=== PATIENT | female | born 1990 | race American Indian/Alaskan Native ===

== ENCOUNTER 2019-02-22 12:52 | Inpatient (IN) | payer MEDICAID ==
[2019-02-22] MEDS ORDERED: MINERAL OIL PO PRN (13:21)
[2019-02-22] MEDS ORDERED: BRETHINE IVP PRN (13:21)
[2019-02-22] MEDS ORDERED: BRETHINE SUB-Q PRN (13:21)
[2019-02-22] MEDS ORDERED: XYLOCAINE 2% INFILTRATI ONE (13:21)
--- NOTE | 2019-02-22 13:25 | History and Physical Report ---
History of Present Illness Date of examination: 02/22/19 Date of admission: 02/22/19 12:52 Chief complaint: sent from office for IOL d/t deceleration on NST, IUGR History of present illness: Menstrual History Regularity: regular Duration: 5 LMP: 05/31/2018 LMP reliability: definite LMP character: normal test type: urine test Date: 08/15/2018 BC at conception: none Planned ? no EDC Calculations LMP: 03/07/2019 First Doppler FHT (date): 08/15/2018 EDC Confirmation: 03/07/2019 Gestational Age: 10 6/7 weeks Past History : 1 Term Births: 0 Premature Births: 0 Living Children: 0 Para: 0 Mult. Births: 0 Prev : 0 Prev. attempt? 0 Aborta: 0 Elect. Ab: 0 Spont. Ab: 0 Ectopics: 0 Past Medical History: Abnormal Pap Smear 2016 Past Surgical History: negative Past Medical History Anesthesia Complications: negative Anemia: negative Autoimmune Disorder: negative Bleeding Disorder: negative Blood Transfusions: negative Breast Disease: negative Diabetes: negative Heart Disease: negative Hypertension: negative Hepatitis/Liver Disease: negative Kidney Disease/UTI: negative Neurologic/Epilepsy/Migraines: negative Phlebitis/Varicosities: negative Psychiatric: negative Pulmonary Disease/Asthma: negative Thyroid Disease: negative Hospitalizations: negative Surgery (Non-reverser): negative Abnormal PAP: positive, 2016, normal 09/2017 Family Hx: maternal aunt: DM and HTN no known family hx cancer Social Hx: single no ETOH/drugs/Smoking Infection History Hx of STD: chlamydia 2010 HIV Risk Eval: no Hepatitis B Risk Eval: low risk Personal hx. of genital herpes: no Partner hx. of genital herpes: no Rash, Viral, or Febrile illness since last LMP? no Varicella/Chicken Pox Status: Previous Disease Genetic History Congenital Heart Defect: Mom: no Dad: no Riaz Disease: Mom: no Dad: no Thalassemia Mom: no Dad: no Neural Tube Defect Mom: no Dad: no Down's Syndrome Mom: no Dad: no Torsten-Sachs Mom: no Dad: no Sickle Cell Disease/Trait Mom: no Dad: no Hemophilia Mom: no Dad: no Muscular Dystrophy Mom: no Dad: no Cystic Fibrosis Mom: no Dad: no Ismael Chorea Mom: no Dad: no Mental Retardation Mom: no Dad: no Fragile X Mom: no Dad: no Other Genetic/Chromosomal Disorder Mom: no Dad: no Child w/other defect Mom: no Dad: no Enviromental Exposures Xray Exposure: no Medication, drug, or alcohol use since LMP: no Chemical/Other Exposure: no Exposure to Cat Liter: no Hx of Parvovirus (Fifth Disease): no Occupational Exposure to Children: none Current Allergies (reviewed today): No known allergies Past History Past Medical History: other (see HPI) Past Surgical History: other (see HPI) 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) Family/Genetic History: other (see HPI) Social history: other (see HPI) - Obstetrical History Expected Date of Delivery: 03/07/19 Actual Gestation: 38 Week(s) 1 Day(s) : 1 Para: 0 Medications and Allergies Allergies Allergy/AdvReac Type Severity Reaction Status Date / Time No Known Allergies Allergy Unverified 02/22/19 13:33 Home Medications Medication Instructions Recorded Confirmed Last Taken Type Vit-Fe Fumar-FA [ 1 tab PO QDAY 02/22/19 02/22/19 02/22/19 09:00 History Vitamin] Active Meds: Active Medications Ephedrine Sulfate (Ephedrine Sulfate) 10 mg IV Q2M PRN PRN Reason: Hypotension Oxytocin/Sodium Chloride (Pitocin/Ns 20 Unit/1000ml Drip) 20 units in 1,000 mls @ 125 mls/hr IV DIRECT SARAH Oxytocin/Sodium Chloride (Pitocin/Ns 30 Unit/500ml) 30 units in 500 mls @ 1 mls/hr IV TITR SARAH; Protocol Lactated Ringer's (Lactated Ringers) 1,000 mls @ 125 mls/hr IV DIRECT SARAH Lidocaine (Xylocaine 2%) 20 ml INFILTRATI ONCE ONE Stop: 02/22/19 13:22 Mineral Oil (Mineral Oil) 30 ml PO QHS PRN PRN Reason: Constipation Misoprostol (Cytotec) 25 mcg VAGINAL ONCE ONE Stop: 02/22/19 17:01 Terbutaline Sulfate (Brethine) 0.25 mg SUB-Q ONCE PRN PRN Reason: Hyperstimulation/Hypertonicity Terbutaline Sulfate (Brethine) 0.25 mg IVP ONCE PRN PRN Reason: Hyperstimulation/Hypertonicity Review of Systems All systems: negative - Vital Signs Vital signs: Vital Signs Pulse BP 92 H 130/93 02/22/19 13:14 02/22/19 13:14 Temp Pulse Resp BP Pulse Ox 92 H 130/93 02/22/19 13:14 02/22/19 13:14 - Physical Exam Cardiovascular: Regular rate, Normal S1, Normal S2 Lungs: Positive: Clear to auscultation, Normal air movement Abdomen: Positive: normal appearance, soft, normal bowel sounds. Negative: distention, tenderness Genitourinary (Female): Positive: normal external genitalia, normal perenium Vulva: both: normal Vagina: Positive: normal moisture. Negative: discharge Cervix: Negative: lesion, discharge Uterus: Positive: normal size, normal contour Adnexa: both: normal Anus/Rectum: Positive: normal perianal skin. Negative: rectal mass, hemorrhoids Extremities: Positive: normal Deep Tendon Reflex Grade: Normal +2 - Obstetrical FHR: auscultation normal Uterine Contraction Pattern: Absent Results Result Diagrams: 02/22/19 Unknown 02/22/19 17:40 All other labs normal. Assessment and Plan 28 y.o. IUP at 38w 1d sent for IOL d/t late deceration noted on NST in office, IUGR. Per [facility] recommendation of delivery b/t 38.0-39.6, decision make to begin IOL with consultation with Dr. Joya. Induction process DWP, questions encouraged and answered. Routine admission orders in EMR. Plan for cervidil this evening. GBS is negative. Patient denies any complaints at this time. VSSAF. Will continue to monitor. Anticipate .
[2019-02-22] MEDS ORDERED: PITOCin/NS 20 UNIT/1000ML DRIP 20 UNITS/1,000 ML BAG IV SCH (14:00)
[2019-02-22] MEDS ORDERED: PITOCin/NS 30 UNIT/500ML 30 UNITS/500 ML BAG IV SCH (14:00)
[2019-02-22 14:33] LABS: Hematocrit 35.6 % (30.3-42.9); Hemoglobin 11.7 gm/dl (10.1-14.3); Mean Corpuscular HGB Conc 33 % (30-34); Mean Corpuscular Volume 77 fl (79-97); Platelet Count 226 K/mm3 (140-440); Red Blood Count 4.65 M/mm3 (3.65-5.03); Red Cell Distribution Width 15.7 % (13.2-15.2)
[2019-02-22] MEDS ORDERED: CERVIDIL VG ONE (16:54)
[2019-02-22] MEDS ORDERED: CYTOTEC VG ONE (17:00)
[2019-02-22 18:58] LABS: Alanine Aminotransferase 18 units/L (7-56); Albumin 3.4 g/dL (3.9-5); BUN/Creatinine Ratio 11; Blood Urea Nitrogen 10 mg/dL (7-17); Calcium 9.4 mg/dL (8.4-10.2); Hemolysis Index 14; Uric Acid 5.2 mg/dL (3.5-7.6)
--- NOTE | 2019-02-22 20:00 | History and Physical Report ---
History of Present Illness Date of examination: 02/22/19 Date of admission: 02/22/19 12:52 Chief complaint: IUGR, Abnormal evaluation History of present illness: Patient presented to office to [facility]ARG[facility]IT[facility] for IUGR revealed a suspicious deceleration. Since [facility] recommends induction at 38 -39 weeks will proceed with induction at this EDC Confirmation: 03/07/2019 Gestational Age: 10 6/7 weeks Past History : 1 Term Births: 0 Premature Births: 0 Living Children: 0 Para: 0 Mult. Births: 0 Prev : 0 Prev. attempt? 0 Aborta: 0 Elect. Ab: 0 Spont. 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 of genital herpes: no Partner hx. of genital herpes: no Rash, Viral, or Febrile illness since last LMP? no Varicella/Chicken Pox Status: Previous Disease Genetic History Congenital Heart Defect: Mom: no Dad: no Riaz Disease: Mom: no Dad: no Thalassemia Mom: no Dad: no Neural Tube Defect Mom: no Dad: no Down's Syndrome Mom: no Dad: no Torsten-Sachs Mom: no Dad: no Sickle Cell Disease/Trait Mom: no Dad: no Hemophilia Mom: no Dad: no Muscular Dystrophy Mom: no Dad: no Cystic Fibrosis Mom: no Dad: no Ismael Chorea Mom: no Dad: no Mental Retardation Mom: no Dad: no Fragile X Mom: no Dad: no Other Genetic/Chromosomal Disorder Mom: no Dad: no Child w/other defect Mom: no Dad: no Enviromental Exposures Xray Exposure: no Medication, drug, or alcohol use since LMP: no Chemical/Other Exposure: no Exposure to Cat Liter: no Hx of Parvovirus (Fifth Disease): no Occupational Exposure to Children: none Current Allergies (reviewed today): No known allergies Past History - Obstetrical History Expected Date of Delivery: 03/07/19 Actual Gestation: 38 Week(s) 1 Day(s) : 1 Medications and Allergies Allergies Allergy/AdvReac Type Severity Reaction Status Date / Time No Known Allergies Allergy Unverified 02/22/19 13:33 Home Medications Medication Instructions Recorded Confirmed Last Taken Type Vit-Fe Fumar-FA [ 1 tab PO QDAY 02/22/19 02/22/19 02/22/19 09:00 History Vitamin] Active Meds: Active Medications Ephedrine Sulfate (Ephedrine Sulfate) 10 mg IV Q2M PRN PRN Reason: Hypotension Oxytocin/Sodium Chloride (Pitocin/Ns 20 Unit/1000ml Drip) 20 units in 1,000 mls @ 125 mls/hr IV DIRECT SARAH Oxytocin/Sodium Chloride (Pitocin/Ns 30 Unit/500ml) 30 units in 500 mls @ 2 mls/hr IV TITR SARAH; Protocol Last Admin: 02/22/19 19:43 Dose: 2 milliunits/min, 2 mls/hr Documented by: Lactated Ringer's (Lactated Ringers) 1,000 mls @ 125 mls/hr IV DIRECT SARAH Mineral Oil (Mineral Oil) 30 ml PO QHS PRN PRN Reason: Constipation Terbutaline Sulfate (Brethine) 0.25 mg SUB-Q ONCE PRN PRN Reason: Hyperstimulation/Hypertonicity Terbutaline Sulfate (Brethine) 0.25 mg IVP ONCE PRN PRN Reason: Hyperstimulation/Hypertonicity Review of Systems All systems: negative - Vital Signs Vital signs: Vital Signs Pulse BP 92 H 130/93 02/22/19 13:14 02/22/19 13:14 Temp Pulse Resp BP Pulse Ox 98.9 F 85 16 132/86 02/22/19 19:29 02/22/19 19:29 02/22/19 19:29 02/22/19 19:29 - Physical Exam Breasts: Positive: deferred Cardiovascular: Regular rate Lungs: Positive: Normal air movement Abdomen: Positive: normal appearance, soft. Negative: tenderness Genitourinary (Female): Positive: normal external genitalia, normal perenium Vulva: both: normal Uterus: Positive: enlarged. Negative: tender Extremities: Positive: normal - Obstetrical FHR: category 1 Uterine Contraction Monitor Mode: External Cervical Dilatation: 1 Cervical Effacement Percentage: 40 station: -3 vtx Uterine Contraction Frequency (min): irregular Results Result Diagrams: 02/22/19 Unknown 02/22/19 17:40 Abnormal lab results 02/22/19 02/22/19 Range/Units 17:40 Unknown WBC 11.1 H (4.5-11.0) K/mm3 MCV 77 L (79-97) fl MCH 25 L (28-32) pg RDW 15.7 H (13.2-15.2) % Potassium 3.5 L (3.6-5.0) mmol/L Glucose 121 H (65-100) mg/dL Alkaline Phosphatase 203 H (35-129) units/L Albumin 3.4 L (3.9-5) g/dL All other labs normal. Assessment and Plan - Patient Problems (1) 38 weeks gestation of Current Visit: Yes Status: Acute (2) IUGR (intrauterine growth restriction) Current Visit: Yes Status: Acute Plan to address problem: Serial induction explained. She is misty too frequently for cervidil, will start pitocin. Questions encouraged and answered. She was informed this procedure may take several days and she may require a C/S. (3) Abnormal finding on screen Current Visit: Yes Status: Acute
[2019-02-23] MEDS: LACTATED RINGERS 1,000 ML IV SCH ×3 (00:27→22:44)
[2019-02-23] MEDS: SUBLIMAZE IV PRN ×2 (00:35→04:09)
--- NOTE | 2019-02-23 00:37 | Progress Note ---
Assessment and Plan - Patient Problems (1) 38 weeks gestation of Current Visit: Yes Status: Acute Plan to address problem: hold pitocin at 8mu/min. Discontinue at ~5a for am care. (2) IUGR (intrauterine growth restriction) Current Visit: Yes Status: Acute (3) Abnormal finding on screen Current Visit: Yes Status: Acute Subjective - Subjective Date of service: 02/23/19 Interval history: Patient presented to office to MARGARITO CAR[facility] for IUGR revealed a suspicious deceleration. Since [facility] recommends induction at 38 -39 weeks will proceed with induction at this EDC Confirmation: 03/07/2019 Gestational Age: 10 6/7 weeks Past History : 1 Term Births: 0 Premature Births: 0 Living Children: 0 Para: 0 Mult. Births: 0 Prev : 0 Prev. attempt? 0 Aborta: 0 Elect. Ab: 0 Spont. 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 of genital herpes: no Partner hx. of genital herpes: no Rash, Viral, or Febrile illness since last LMP? no Varicella/Chicken Pox Status: Previous Disease Genetic History Congenital Heart Defect: Mom: no Dad: no Riaz Disease: Mom: no Dad: no Thalassemia Mom: no Dad: no Neural Tube Defect Mom: no Dad: no Down's Syndrome Mom: no Dad: no Torsten-Sachs Mom: no Dad: no Sickle Cell Disease/Trait Mom: no Dad: no Hemophilia Mom: no Dad: no Muscular Dystrophy Mom: no Dad: no Cystic Fibrosis Mom: no Dad: no Ismael Chorea Mom: no Dad: no Mental Retardation Mom: no Dad: no Fragile X Mom: no Dad: no Other Genetic/Chromosomal Disorder Mom: no Dad: no Child w/other defect Mom: no Dad: no Enviromental Exposures Xray Exposure: no Medication, drug, or alcohol use since LMP: no Chemical/Other Exposure: no Exposure to Cat Liter: no Hx of Parvovirus (Fifth Disease): no Occupational Exposure to Children: none Current Allergies (reviewed today): No known allergies Patient reports: movement normal, contractions, no loss of fluid, no vaginal bleeding Objective - Vital Signs Vital Signs: Vital Signs - 12hr 02/22/19 02/22/19 02/22/19 13:14 14:07 14:15 Temperature Pulse Rate 92 H 78 90 Respiratory Rate Blood Pressure 130/93 126/81 127/83 Blood Pressure [Right] O2 Sat by Pulse Oximetry 02/22/19 02/22/19 02/22/19 14:34 15:33 16:15 Temperature 98.4 F Pulse Rate 83 108 H Respiratory 20 Rate Blood Pressure 128/90 156/101 Blood Pressure [Right] O2 Sat by Pulse Oximetry 02/22/19 02/22/19 02/22/19 16:20 17:15 18:14 Temperature Pulse Rate 117 H 112 H 111 H Respiratory Rate Blood Pressure 134/94 119/89 127/90 Blood Pressure [Right] O2 Sat by Pulse Oximetry 02/22/19 02/22/19 02/22/19 19:28 19:29 20:50 Temperature 98.9 F Pulse Rate 85 85 93 H Respiratory 16 Rate Blood Pressure 132/86 134/101 Blood Pressure 132/86 [Right] O2 Sat by Pulse Oximetry 02/22/19 02/22/19 02/22/19 20:58 21:02 21:20 Temperature Pulse Rate 86 93 H 108 H Respiratory Rate Blood Pressure 142/101 132/96 144/98 Blood Pressure [Right] O2 Sat by Pulse Oximetry 02/22/19 02/22/19 02/22/19 21:50 22:19 22:49 Temperature Pulse Rate 82 69 78 Respiratory Rate Blood Pressure 129/98 132/91 125/90 Blood Pressure [Right] O2 Sat by Pulse Oximetry 02/22/19 02/22/19 02/22/19 23:07 23:12 23:17 Temperature Pulse Rate 88 83 81 Respiratory Rate Blood Pressure Blood Pressure [Right] O2 Sat by Pulse 98 98 97 Oximetry 02/22/19 02/22/19 02/22/19 23:20 23:27 23:32 Temperature Pulse Rate 82 81 87 Respiratory Rate Blood Pressure 139/97 Blood Pressure [Right] O2 Sat by Pulse 100 99 Oximetry 02/22/19 02/22/19 02/22/19 23:37 23:42 23:47 Temperature Pulse Rate 66 69 88 Respiratory Rate Blood Pressure Blood Pressure [Right] O2 Sat by Pulse 100 100 100 Oximetry 02/22/19 02/22/19 02/22/19 23:49 23:52 23:57 Temperature Pulse Rate 75 76 84 Respiratory Rate Blood Pressure 138/99 Blood Pressure [Right] O2 Sat by Pulse 99 100 Oximetry 02/23/19 02/23/19 02/23/19 00:02 00:07 00:12 Temperature Pulse Rate 85 76 86 Respiratory Rate Blood Pressure Blood Pressure [Right] O2 Sat by Pulse 100 99 98 Oximetry 02/23/19 02/23/19 02/23/19 00:17 00:20 00:22 Temperature Pulse Rate 81 71 94 H Respiratory Rate Blood Pressure 156/94 Blood Pressure [Right] O2 Sat by Pulse 97 92 98 Oximetry 02/23/19 02/23/19 00:27 00:32 Temperature Pulse Rate 83 80 Respiratory Rate Blood Pressure Blood Pressure [Right] O2 Sat by Pulse 98 89 Oximetry - Exam Breasts: deferred Uterus: Present: fundal height above umbilicus. Absent: tenderness FHR: category 1 Cervical Dilatation: 1 Cervical Effacement Percentage: 40 station: -3 Uterine Contraction Pattern: Irregular - Labs Labs: Abnormal Labs 02/22/19 02/22/19 17:40 Unknown WBC 11.1 H MCV 77 L MCH 25 L RDW 15.7 H Potassium 3.5 L Glucose 121 H Alkaline Phosphatase 203 H Albumin 3.4 L Laboratory Results - last 24 hr 02/22/19 02/22/19 02/22/19 17:40 Unknown Unknown WBC 11.1 H RBC 4.65 Hgb 11.7 Hct 35.6 MCV 77 L MCH 25 L MCHC 33 RDW 15.7 H Plt Count 226 Sodium 138 Potassium 3.5 L Chloride 103.1 Carbon Dioxide 22 Anion Gap 16 BUN 10 Creatinine 0.9 Estimated GFR > 60 BUN/Creatinine Ratio 11 Glucose 121 H Uric Acid 5.2 Calcium 9.4 Total Bilirubin 0.20 AST 23 ALT 18 Alkaline Phosphatase 203 H Total Protein 6.6 Albumin 3.4 L Albumin/Globulin Ratio 1.1 Blood Type AB POSITIVE Antibody Screen Negative
[2019-02-23] MEDS ORDERED: ZOFRAN IV ONE (01:58)
[2019-02-23] MEDS ORDERED: ZOFRAN ONE (02:04)
[2019-02-23 06:57] LABS: Hematocrit 34.6 % (30.3-42.9); Hemoglobin 11.3 gm/dl (10.1-14.3); Mean Corpuscular HGB Conc 33 % (30-34); Mean Corpuscular Volume 77 fl (79-97); Platelet Count 208 K/mm3 (140-440); Red Blood Count 4.48 M/mm3 (3.65-5.03); Red Cell Distribution Width 15.7 % (13.2-15.2)
[2019-02-23 07:27] LABS: Alanine Aminotransferase 13 units/L (7-56); Uric Acid 4.9 mg/dL (3.5-7.6)
[2019-02-23 08:18] LABS: Bilirubin,Urine NEG (Negative); Blood,Urine NEG (Negative); Color,Urine Yellow (Yellow); Urobilinogen,Urine < 2.0 mg/dL (<2.0)
--- NOTE | 2019-02-23 09:06 | Progress Note ---
Assessment and Plan Patient is resting comfortably in bed, she denies any complaints or concerns. SVE 1.5/50/-3. Cat 1 tracing at this time. Irregular contractions noted per TOCO, palpating mild. Patient reports they are noticeable, not uncomfortable. VSSAF. DWP plan for pitocin today, RN aware. Patient has showered, waiting for breakfast. Will begin picotin after she eats. Questions encouraged and answered. Patient agrees to POC. Will continue to monitor. Subjective - Subjective Date of service: 02/23/19 Principal diagnosis: IOL IUGR Interval history: Menstrual History Regularity: regular Duration: 5 LMP: 05/31/2018 LMP reliability: definite LMP character: normal test type: urine test Date: 08/15/2018 BC at conception: none Planned ? no EDC Calculations LMP: 03/07/2019 First Doppler FHT (date): 08/15/2018 EDC Confirmation: 03/07/2019 Gestational Age: 10 6/7 weeks Past History : 1 Term Births: 0 Premature Births: 0 Living Children: 0 Para: 0 Mult. Births: 0 Prev : 0 Prev. attempt? 0 Aborta: 0 Elect. Ab: 0 Spont. Ab: 0 Ectopics: 0 Past Medical History: Abnormal Pap Smear 2016 Past Surgical History: negative Past Medical History Anesthesia Complications: negative Anemia: negative Autoimmune Disorder: negative Bleeding Disorder: negative Blood Transfusions: negative Breast Disease: negative Diabetes: negative Heart Disease: negative Hypertension: negative Hepatitis/Liver Disease: negative Kidney Disease/UTI: negative Neurologic/Epilepsy/Migraines: negative Phlebitis/Varicosities: negative Psychiatric: negative Pulmonary Disease/Asthma: negative Thyroid Disease: negative Hospitalizations: negative Surgery (Non-billing clerk): negative Abnormal PAP: positive, 2016, normal 09/2017 Family Hx: maternal aunt: DM and HTN no known family hx cancer Social Hx: single no ETOH/drugs/Smoking Infection History Hx of STD: chlamydia 2010 HIV Risk Eval: no Hepatitis B Risk Eval: low risk Personal hx. of genital herpes: no Partner hx. of genital herpes: no Rash, Viral, or Febrile illness since last LMP? no Varicella/Chicken Pox Status: Previous Disease Genetic History Congenital Heart Defect: Mom: no Dad: no Riaz Disease: Mom: no Dad: no Thalassemia Mom: no Dad: no Neural Tube Defect Mom: no Dad: no Down's Syndrome Mom: no Dad: no Torsten-Sachs Mom: no Dad: no Sickle Cell Disease/Trait Mom: no Dad: no Hemophilia Mom: no Dad: no Muscular Dystrophy Mom: no Dad: no Cystic Fibrosis Mom: no Dad: no Ismael Chorea Mom: no Dad: no Mental Retardation Mom: no Dad: no Fragile X Mom: no Dad: no Other Genetic/Chromosomal Disorder Mom: no Dad: no Child w/other defect Mom: no Dad: no Enviromental Exposures Xray Exposure: no Medication, drug, or alcohol use since LMP: no Chemical/Other Exposure: no Exposure to Cat Liter: no Hx of Parvovirus (Fifth Disease): no Occupational Exposure to Children: none Current Allergies (reviewed today): No known allergies Patient reports: movement normal, contractions (occasional, mild), no new complaints, no loss of fluid, no vaginal bleeding Objective - Vital Signs Vital Signs: Vital Signs - 12hr 02/22/19 02/22/19 02/22/19 21:20 21:50 22:19 Temperature Pulse Rate 108 H 82 69 Respiratory Rate Blood Pressure 144/98 129/98 132/91 Blood Pressure [Right] O2 Sat by Pulse Oximetry 02/22/19 02/22/19 02/22/19 22:49 23:07 23:12 Temperature Pulse Rate 78 88 83 Respiratory Rate Blood Pressure 125/90 Blood Pressure [Right] O2 Sat by Pulse 98 98 Oximetry 02/22/19 02/22/19 02/22/19 23:17 23:20 23:27 Temperature Pulse Rate 81 82 81 Respiratory Rate Blood Pressure 139/97 Blood Pressure [Right] O2 Sat by Pulse 97 100 Oximetry 02/22/19 02/22/19 02/22/19 23:32 23:37 23:42 Temperature Pulse Rate 87 66 69 Respiratory Rate Blood Pressure Blood Pressure [Right] O2 Sat by Pulse 99 100 100 Oximetry 02/22/19 02/22/19 02/22/19 23:47 23:49 23:52 Temperature Pulse Rate 88 75 76 Respiratory Rate Blood Pressure 138/99 Blood Pressure [Right] O2 Sat by Pulse 100 99 Oximetry 02/22/19 02/23/19 02/23/19 23:57 00:02 00:07 Temperature Pulse Rate 84 85 76 Respiratory Rate Blood Pressure Blood Pressure [Right] O2 Sat by Pulse 100 100 99 Oximetry 02/23/19 02/23/19 02/23/19 00:12 00:17 00:20 Temperature Pulse Rate 86 81 71 Respiratory Rate Blood Pressure 156/94 Blood Pressure [Right] O2 Sat by Pulse 98 97 92 Oximetry 02/23/19 02/23/19 02/23/19 00:22 00:27 00:32 Temperature Pulse Rate 94 H 83 80 Respiratory Rate Blood Pressure Blood Pressure [Right] O2 Sat by Pulse 98 98 89 Oximetry 02/23/19 02/23/19 02/23/19 00:35 00:37 00:42 Temperature Pulse Rate 83 110 H Respiratory 18 Rate Blood Pressure Blood Pressure [Right] O2 Sat by Pulse 99 96 Oximetry 02/23/19 02/23/19 02/23/19 00:47 00:49 00:50 Temperature Pulse Rate 96 H 110 H 100 H Respiratory Rate Blood Pressure 131/92 Blood Pressure [Right] O2 Sat by Pulse 95 94 Oximetry 02/23/19 02/23/19 02/23/19 00:52 00:56 00:57 Temperature Pulse Rate 94 H 93 H 98 H Respiratory Rate Blood Pressure Blood Pressure [Right] O2 Sat by Pulse 95 94 98 Oximetry 02/23/19 02/23/19 02/23/19 01:02 01:03 01:07 Temperature Pulse Rate 94 H 96 H 91 H Respiratory Rate Blood Pressure Blood Pressure [Right] O2 Sat by Pulse 96 94 96 Oximetry 02/23/19 02/23/19 02/23/19 01:12 01:17 01:19 Temperature Pulse Rate 98 H 95 H 102 H Respiratory Rate Blood Pressure 130/81 Blood Pressure [Right] O2 Sat by Pulse 100 98 Oximetry 02/23/19 02/23/19 02/23/19 01:22 01:27 01:32 Temperature Pulse Rate 92 H 112 H 95 H Respiratory Rate Blood Pressure Blood Pressure [Right] O2 Sat by Pulse 97 98 98 Oximetry 02/23/19 02/23/19 02/23/19 01:35 01:37 01:42 Temperature Pulse Rate 78 83 Respiratory 18 Rate Blood Pressure Blood Pressure [Right] O2 Sat by Pulse 98 98 Oximetry 02/23/19 02/23/19 02/23/19 01:47 01:49 01:52 Temperature Pulse Rate 81 101 H 87 Respiratory Rate Blood Pressure 128/90 Blood Pressure [Right] O2 Sat by Pulse 97 97 Oximetry 02/23/19 02/23/19 02/23/19 01:57 02:00 02:02 Temperature Pulse Rate 94 H 101 H 86 Respiratory 18 Rate Blood Pressure Blood Pressure 128/91 [Right] O2 Sat by Pulse 96 96 Oximetry 02/23/19 02/23/19 02/23/19 02:04 02:07 02:12 Temperature Pulse Rate 82 84 69 Respiratory Rate Blood Pressure Blood Pressure [Right] O2 Sat by Pulse 94 97 98 Oximetry 02/23/19 02/23/19 02/23/19 02:20 02:25 02:30 Temperature Pulse Rate 77 69 77 Respiratory Rate Blood Pressure Blood Pressure [Right] O2 Sat by Pulse 99 98 95 Oximetry 02/23/19 02/23/19 02/23/19 02:35 02:37 02:40 Temperature Pulse Rate 75 85 77 Respiratory Rate Blood Pressure Blood Pressure [Right] O2 Sat by Pulse 96 94 97 Oximetry 02/23/19 02/23/19 02/23/19 02:42 02:45 02:47 Temperature Pulse Rate 79 84 72 Respiratory Rate Blood Pressure Blood Pressure [Right] O2 Sat by Pulse 94 93 91 Oximetry 02/23/19 02/23/19 02/23/19 02:49 02:50 02:55 Temperature Pulse Rate 88 70 97 H Respiratory Rate Blood Pressure 126/84 Blood Pressure [Right] O2 Sat by Pulse 100 99 Oximetry 02/23/19 02/23/19 02/23/19 03:00 03:05 03:10 Temperature Pulse Rate 70 81 71 Respiratory Rate Blood Pressure Blood Pressure [Right] O2 Sat by Pulse 100 97 99 Oximetry 02/23/19 02/23/19 02/23/19 03:15 03:19 03:20 Temperature Pulse Rate 74 94 H 68 Respiratory Rate Blood Pressure 132/89 Blood Pressure [Right] O2 Sat by Pulse 97 94 96 Oximetry 02/23/19 02/23/19 02/23/19 03:25 03:27 03:30 Temperature Pulse Rate 87 72 66 Respiratory Rate Blood Pressure Blood Pressure [Right] O2 Sat by Pulse 95 93 97 Oximetry 02/23/19 02/23/19 02/23/19 03:34 03:35 03:40 Temperature Pulse Rate 76 80 71 Respiratory Rate Blood Pressure Blood Pressure [Right] O2 Sat by Pulse 93 97 99 Oximetry 0602/23/19 02/23/19 03:45 03:47 03:50 Temperature Pulse Rate 64 70 75 Respiratory Rate Blood Pressure 127/83 Blood Pressure [Right] O2 Sat by Pulse 98 93 98 Oximetry 02/23/19 02/23/19 02/23/19 03:55 04:00 04:05 Temperature Pulse Rate 79 77 79 Respiratory Rate Blood Pressure Blood Pressure [Right] O2 Sat by Pulse 98 98 98 Oximetry 02/23/19 02/23/19 02/23/19 04:09 04:10 04:15 Temperature Pulse Rate 79 85 Respiratory 18 Rate Blood Pressure Blood Pressure [Right] O2 Sat by Pulse 98 96 Oximetry 02/23/19 02/23/19 02/23/19 04:16 04:19 04:20 Temperature Pulse Rate 84 78 90 Respiratory Rate Blood Pressure 142/89 Blood Pressure [Right] O2 Sat by Pulse 94 95 Oximetry 02/23/19 02/23/19 02/23/19 04:22 04:25 04:27 Temperature Pulse Rate 89 89 96 H Respiratory Rate Blood Pressure Blood Pressure [Right] O2 Sat by Pulse 92 92 92 Oximetry 02/23/19 02/23/19 02/23/19 04:30 04:33 04:35 Temperature Pulse Rate 93 H 86 96 H Respiratory Rate Blood Pressure Blood Pressure [Right] O2 Sat by Pulse 96 94 96 Oximetry 02/23/19 02/23/19 02/23/19 04:38 04:40 04:43 Temperature Pulse Rate 87 83 88 Respiratory Rate Blood Pressure Blood Pressure [Right] O2 Sat by Pulse 94 96 94 Oximetry 02/23/19 02/23/19 02/23/19 04:45 04:49 04:50 Temperature Pulse Rate 97 H 84 88 Respiratory Rate Blood Pressure 125/84 Blood Pressure [Right] O2 Sat by Pulse 93 94 96 Oximetry 02/23/19 02/23/19 02/23/19 04:55 05:00 05:05 Temperature Pulse Rate 80 77 70 Respiratory Rate Blood Pressure Blood Pressure [Right] O2 Sat by Pulse 96 96 96 Oximetry 02/23/19 02/23/19 02/23/19 05:10 05:15 05:20 Temperature Pulse Rate 83 69 68 Respiratory Rate Blood Pressure 132/88 Blood Pressure [Right] O2 Sat by Pulse 96 98 97 Oximetry 02/23/19 02/23/19 02/23/19 05:25 05:27 05:30 Temperature Pulse Rate 70 80 70 Respiratory Rate Blood Pressure Blood Pressure [Right] O2 Sat by Pulse 97 94 97 Oximetry 02/23/19 02/23/19 02/23/19 05:35 05:41 05:46 Temperature Pulse Rate 65 101 H 88 Respiratory Rate Blood Pressure Blood Pressure [Right] O2 Sat by Pulse 98 98 100 Oximetry 02/23/19 02/23/19 02/23/19 05:49 05:51 05:56 Temperature Pulse Rate 61 79 68 Respiratory Rate Blood Pressure 148/99 Blood Pressure [Right] O2 Sat by Pulse 97 97 Oximetry 02/23/19 02/23/19 02/23/19 05:59 06:01 06:06 Temperature Pulse Rate 85 97 H 90 Respiratory Rate Blood Pressure Blood Pressure [Right] O2 Sat by Pulse 94 97 92 Oximetry 02/23/19 02/23/19 02/23/19 06:11 06:16 06:21 Temperature Pulse Rate 80 71 91 H Respiratory Rate Blood Pressure 145/90 Blood Pressure [Right] O2 Sat by Pulse 92 96 99 Oximetry 02/23/19 02/23/19 02/23/19 07:31 07:32 07:33 Temperature 98.5 F Pulse Rate 90 83 92 H Respiratory 18 Rate Blood Pressure 127/85 Blood Pressure 127/85 [Right] O2 Sat by Pulse 98 97 Oximetry 02/23/19 02/23/19 02/23/19 07:36 07:41 07:46 Temperature Pulse Rate 89 99 H 88 Respiratory Rate Blood Pressure Blood Pressure [Right] O2 Sat by Pulse 97 98 97 Oximetry 02/23/19 02/23/19 02/23/19 07:51 07:56 08:01 Temperature Pulse Rate 99 H 102 H 112 H Respiratory Rate Blood Pressure Blood Pressure [Right] O2 Sat by Pulse 96 98 96 Oximetry 02/23/19 02/23/19 02/23/19 08:06 08:11 08:16 Temperature Pulse Rate 102 H 76 72 Respiratory Rate Blood Pressure Blood Pressure [Right] O2 Sat by Pulse 96 96 97 Oximetry 02/23/19 02/23/19 02/23/19 08:18 08:21 08:23 Temperature Pulse Rate 75 83 90 Respiratory Rate Blood Pressure Blood Pressure [Right] O2 Sat by Pulse 94 93 94 Oximetry 02/23/19 02/23/1902/23/19 08:26 08:31 08:36 Temperature Pulse Rate 85 84 81 Respiratory Rate Blood Pressure Blood Pressure [Right] O2 Sat by Pulse 94 98 98 Oximetry 02/23/19 02/23/19 02/23/19 08:41 08:46 08:51 Temperature Pulse Rate 89 95 H 73 Respiratory Rate Blood Pressure Blood Pressure [Right] O2 Sat by Pulse 98 98 97 Oximetry 02/23/19 02/23/19 02/23/19 08:56 08:59 09:01 Temperature Pulse Rate 78 79 77 Respiratory Rate Blood Pressure Blood Pressure [Right] O2 Sat by Pulse 96 94 95 Oximetry - Exam Breasts: normal Cardiovascular: Regular rate, Normal S1, Normal S2 Lungs: Clear to auscultation Abdomen: Present: normal appearance, soft, normal bowel sounds. Absent: distention, tenderness Vulva: both: normal Uterus: Present: normal FHR: auscultation normal Uterine Contraction Monitor Mode: External Cervical Dilatation: 1.5 Cervical Effacement Percentage: 50 station: -3 Uterine Contraction Pattern: Irregular Uterine Tone Measurement Phase: Contraction Uterine Contraction Intensity: Mild Extremities: normal Deep Tendon Reflex Grade: Normal +2 - Labs Labs: Abnormal Labs 02/22/19 02/22/19 02/23/19 17:40 Unknown 05:44 WBC 11.1 H 12.1 H MCV 77 L 77 L MCH 25 L 25 L RDW 15.7 H 15.7 H Potassium 3.5 L Glucose 121 H Alkaline Phosphatase 203 H Albumin 3.4 L Laboratory Results - last 24 hr 02/22/19 02/22/19 02/22/19 17:40 Unknown Unknown WBC 11.1 H RBC 4.65 Hgb 11.7 Hct 35.6 MCV 77 L MCH 25 L MCHC 33 RDW 15.7 H Plt Count 226 Sodium 138 Potassium 3.5 L Chloride 103.1 Carbon Dioxide 22 Anion Gap 16 BUN 10 Creatinine 0.9 Estimated GFR > 60 BUN/Creatinine Ratio 11 Glucose 121 H Uric Acid 5.2 Calcium 9.4 Total Bilirubin 0.20 AST 23 ALT 18 Alkaline Phosphatase 203 H Lactate Dehydrogenase Total Protein 6.6 Albumin 3.4 L Albumin/Globulin Ratio 1.1 Urine Color Urine Turbidity Urine pH Ur Specific [place] Urine Protein Urine Glucose (UA) Urine Ketones Urine Blood Urine Nitrite Urine Bilirubin Urine Urobilinogen Ur Leukocyte Esterase Urine WBC (Auto) Urine RBC (Auto) U Epithel Cells (Auto) Blood Type AB POSITIVE Antibody Screen Negative 02/23/19 02/23/19 02/23/19 05:44 05:44 07:40 WBC 12.1 H RBC 4.48 Hgb 11.3 Hct 34.6 MCV 77 L MCH 25 L MCHC 33 RDW 15.7 H Plt Count 208 Sodium Potassium Chloride Carbon Dioxide Anion Gap BUN Creatinine 0.7 Estimated GFR > 60 BUN/Creatinine Ratio Glucose Uric Acid 4.9 Calcium Total Bilirubin AST 17 ALT 13 Alkaline Phosphatase Lactate Dehydrogenase 168 Total Protein Albumin Albumin/Globulin Ratio Urine Color Yellow Urine Turbidity Clear Urine pH 6.0 Ur Specific [place] 1.011 Urine Protein 100 mg/dl Urine Glucose (UA) Neg Urine Ketones Tr Urine Blood Neg Urine Nitrite Neg Urine Bilirubin Neg Urine Urobilinogen < 2.0 Ur Leukocyte Esterase Neg Urine WBC (Auto) 1.0 Urine RBC (Auto) 1.0 U Epithel Cells (Auto) 2.0 Blood Type Antibody Screen
[2019-02-23] MEDS: PITOCin/NS 30 UNIT/500ML 30 UNITS/500 ML BAG IV SCH (09:35)
--- NOTE | 2019-02-23 13:38 | Event Note ---
Date: 02/23/19 Patient resting in bed. Reports being comfortable. Says she feels contractions but "they are not painful". Cat 1 tracing at this time. Ctx q4-5 min per TOCO, palpating mild to moderate. SVE /-3, vertex, IBOW. Pitocin currently infusing at 24 mu/min. Consult with Dr. Corbin to review POC and determine max dose of pitocin with external monitoring. Will continue to monitor.
--- NOTE | 2019-02-23 19:17 | Event Note ---
Date: 02/23/19 Pt s/p pitocin with a max of 30mu w/o any cervical change or s/sx of labor. Will rest pt at this time and restart pitocin in a few hours. Plan of care d/w pt and her mother and all questions were addressed and answered.
--- NOTE | 2019-02-24 01:11 | Event Note ---
Date: 02/24/19 pt noted to have some varialbe decels no associated with contractions and change in baseline to 150s-160s. IVFs given and position changed. Will con't to closely monitor.
--- NOTE | 2019-02-24 01:48 | Event Note ---
Date: 02/24/19 At bedside to examine pt due to late decel. Pt was lying on back at time of decel. Pt examined and exam is unchanged. Will hold pitocin at this time.Now cat 1 tracing w/o decels since position change. I d/w possible need for operative delivey should decels cont and she remains remote from delivery. Pt expressed not wanting a c/s. I d/w that it would be done if necessary and at thit time the tracing is reassurring so is not needed. She expressed understanding. Pt inquired about a coates bulb being placed. I advised that she is already dialted and would not likely benefit from placement. Se again expressed understanding. Charge nurse at bedside during conversation.
--- NOTE | 2019-02-24 08:47 | Progress Note ---
Assessment and Plan - Patient Problems (1) 38 weeks gestation of Current Visit: Yes Status: Acute (2) IUGR (intrauterine growth restriction) Current Visit: Yes Status: Acute Plan to address problem: AM care AROM with at least IUPC placement Epidural and pitocin Plan of care discussed with patient and RN Patient voiced understanding and agrees with POC (3) Abnormal finding on screen Current Visit: Yes Status: Acute Subjective - Subjective Date of service: 02/24/19 Principal diagnosis: IOL IUGR Interval history: Patient presented to office to [facility] for IUGR revealed a suspicious deceleration. Since [facility] recommends induction at 38 -39 weeks will proceed with induction at this EDC Confirmation: 03/07/2019 Gestational Age: 10 6/7 weeks Past History : 1 Term Births: 0 Premature Births: 0 Living Children: 0 Para: 0 Mult. Births: 0 Prev : 0 Prev. attempt? 0 Aborta: 0 Elect. Ab: 0 Spont. Ab: 0 Ectopics: 0 Past Medical History: Abnormal Pap Smear 2016 Past Surgical History: negative Past Medical History Anesthesia Complications: negative Anemia: negative Autoimmune Disorder: negative Bleeding Disorder: negative Blood Transfusions: negative Breast Disease: negative Diabetes: negative Heart Disease: negative Hypertension: negative Hepatitis/Liver Disease: negative Kidney Disease/UTI: negative Neurologic/Epilepsy/Migraines: negative Phlebitis/Varicosities: negative Psychiatric: negative Pulmonary Disease/Asthma: negative Thyroid Disease: negative Hospitalizations: negative Surgery (Non-obgyn specialist): negative Abnormal PAP: positive, 2016, normal 09/2017 Family Hx: maternal aunt: DM and HTN no known family hx cancer Social Hx: single no ETOH/drugs/Smoking Infection History Hx of STD: chlamydia 2011 HIV Risk Eval: no Hepatitis B Risk Eval: low risk Personal hx. of genital herpes: no Partner hx. of genital herpes: no Rash, Viral, or Febrile illness since last LMP? no Varicella/Chicken Pox Status: Previous Disease Genetic History Congenital Heart Defect: Mom: no Dad: no Riaz Disease: Mom: no Dad: no Thalassemia Mom: no Dad: no Neural Tube Defect Mom: no Dad: no Down's Syndrome Mom: no Dad: no Torsten-Sachs Mom: no Dad: no Sickle Cell Disease/Trait Mom: no Dad: no Hemophilia Mom: no Dad: no Muscular Dystrophy Mom: no Dad: no Cystic Fibrosis Mom: no Dad: no [place] Chorea Mom: no Dad: no Mental Retardation Mom: no Dad: no Fragile X Mom: no Dad: no Other Genetic/Chromosomal Disorder Mom: no Dad: no Child w/other defect Mom: no Dad: no Enviromental Exposures Xray Exposure: no Medication, drug, or alcohol use since LMP: no Chemical/Other Exposure: no Exposure to Cat Liter: no Hx of Parvovirus (Fifth Disease): no Occupational Exposure to Children: none Current Allergies (reviewed today): No known allergies Patient reports: movement normal, contractions (occasional, mild), no new complaints, no loss of fluid, no vaginal bleeding Objective - Vital Signs Vital Signs: Vital Signs - 12hr 02/23/19 02/23/19 02/23/19 20:54 21:00 21:21 Temperature 97.9 F Pulse Rate 73 74 Respiratory 16 Rate Blood Pressure 141/84 O2 Sat by Pulse 99 Oximetry 02/23/19 02/23/19 02/23/19 21:24 21:26 21:31 Temperature Pulse Rate 73 79 82 Respiratory Rate Blood Pressure 126/82 O2 Sat by Pulse 97 97 Oximetry 02/23/19 02/23/19 02/23/19 21:36 21:41 21:46 Temperature Pulse Rate 79 80 81 Respiratory Rate Blood Pressure O2 Sat by Pulse 97 97 96 Oximetry 02/23/19 02/23/19 02/23/19 21:51 21:54 21:56 Temperature Pulse Rate 82 77 77 Respiratory Rate Blood Pressure 124/80 O2 Sat by Pulse 97 97 Oximetry 02/23/19 02/23/19 02/23/19 22:01 22:06 22:11 Temperature Pulse Rate 82 83 90 Respiratory Rate Blood Pressure O2 Sat by Pulse 95 95 96 Oximetry 02/23/19 02/23/19 02/23/19 22:16 22:21 22:24 Temperature Pulse Rate 80 84 67 Respiratory Rate Blood Pressure 120/77 O2 Sat by Pulse 97 98 Oximetry 02/23/19 02/23/19 02/23/19 22:26 22:31 22:36 Temperature Pulse Rate 72 73 79 Respiratory Rate Blood Pressure O2 Sat by Pulse 97 95 95 Oximetry 02/23/19 02/23/19 02/23/19 22:41 22:46 22:51 Temperature Pulse Rate 73 74 75 Respiratory Rate Blood Pressure O2 Sat by Pulse 95 96 97 Oximetry 02/23/19 02/23/19 02/23/19 22:54 22:56 23:01 Temperature Pulse Rate 62 68 66 Respiratory Rate Blood Pressure 122/78 O2 Sat by Pulse 96 97 Oximetry 02/23/19 02/23/19 02/23/19 23:06 23:24 23:54 Temperature Pulse Rate 70 73 79 Respiratory Rate Blood Pressure 123/78 137/79 O2 Sat by Pulse 96 Oximetry 02/24/19 02/24/19 02/24/19 00:00 00:24 00:54 Temperature 98.1 F Pulse Rate 70 63 Respiratory 18 Rate Blood Pressure 127/60 118/65 O2 Sat by Pulse Oximetry 02/24/19 02/24/19 02/24/19 01:24 01:35 01:40 Temperature Pulse Rate 68 72 70 Respiratory Rate Blood Pressure 127/83 O2 Sat by Pulse 47 L 100 Oximetry 02/24/19 02/24/19 02/24/19 01:45 01:50 01:54 Temperature Pulse Rate 67 75 74 Respiratory Rate Blood Pressure 123/85 O2 Sat by Pulse 100 99 Oximetry 02/24/19 02/24/19 02/24/19 01:55 02:00 02:05 Temperature Pulse Rate 77 71 74 Respiratory Rate Blood Pressure O2 Sat by Pulse 100 98 99 Oximetry 02/24/19 02/24/19 02/24/19 02:13 02:18 02:23 Temperature Pulse Rate 81 67 Respiratory Rate Blood Pressure O2 Sat by Pulse 97 99 98 Oximetry 02/24/19 02/24/19 02/24/19 02:28 02:33 02:38 Temperature Pulse Rate 81 66 69 Respiratory Rate Blood Pressure O2 Sat by Pulse 99 99 99 Oximetry 02/24/19 02/24/19 02/24/19 02:43 02:48 02:53 Temperature Pulse Rate 79 69 69 Respiratory Rate Blood Pressure O2 Sat by Pulse 99 97 98 Oximetry 02/24/19 02/24/19 02/24/19 02:58 03:03 03:08 Temperature Pulse Rate 79 87 87 Respiratory Rate Blood Pressure O2 Sat by Pulse 98 95 95 Oximetry 02/24/19 02/24/19 02/24/19 03:13 03:18 03:23 Temperature Pulse Rate 87 91 H 92 H Respiratory Rate Blood Pressure O2 Sat by Pulse 95 96 94 Oximetry 02/24/19 02/24/19 02/24/19 03:28 03:33 03:38 Temperature Pulse Rate 95 H 87 97 H Respiratory Rate Blood Pressure O2 Sat by Pulse 96 95 98 Oximetry 02/24/19 02/24/19 02/24/19 03:43 03:48 03:53 Temperature Pulse Rate 92 H 78 86 Respiratory Rate Blood Pressure O2 Sat by Pulse 95 95 95 Oximetry 02/24/19 02/24/19 02/24/19 03:55 03:58 04:03 Temperature Pulse Rate 93 H 78 88 Respiratory Rate Blood Pressure 126/72 O2 Sat by Pulse 95 97 Oximetry 02/24/19 02/24/19 02/24/19 04:13 04:18 04:23 Temperature Pulse Rate 72 67 68 Respiratory Rate Blood Pressure O2 Sat by Pulse 100 99 98 Oximetry 02/24/19 02/24/19 02/24/19 04:24 04:28 04:33 Temperature Pulse Rate 63 65 66 Respiratory Rate Blood Pressure 126/84 O2 Sat by Pulse 99 97 Oximetry 02/24/19 02/24/19 02/24/19 04:38 04:43 04:48 Temperature Pulse Rate 66 69 70 Respiratory Rate Blood Pressure O2 Sat by Pulse 96 97 97 Oximetry 02/24/19 02/24/19 02/24/19 04:53 04:54 04:58 Temperature 98.0 F Pulse Rate 69 66 74 Respiratory 16 Rate Blood Pressure 112/76 O2 Sat by Pulse 97 96 Oximetry 02/24/19 02/24/19 02/24/19 05:03 05:08 05:13 Temperature Pulse Rate 67 74 72 Respiratory Rate Blood Pressure O2 Sat by Pulse 97 96 95 Oximetry 02/24/19 02/24/19 02/24/19 05:18 05:23 05:24 Temperature Pulse Rate 71 76 63 Respiratory Rate Blood Pressure 119/78 O2 Sat by Pulse 94 97 Oximetry 02/24/19 02/24/19 02/24/19 05:28 05:32 05:33 Temperature Pulse Rate 71 90 73 Respiratory Rate Blood Pressure O2 Sat by Pulse 93 88 98 Oximetry 02/24/19 02/24/19 02/24/19 05:38 05:41 05:43 Temperature Pulse Rate 88 81 82 Respiratory Rate Blood Pressure O2 Sat by Pulse 95 87 98 Oximetry 02/24/19 02/24/19 02/24/19 05:48 05:53 05:54 Temperature Pulse Rate 74 76 70 Respiratory Rate Blood Pressure 121/74 O2 Sat by Pulse 99 99 Oximetry 02/24/19 02/24/19 02/24/19 05:58 06:03 06:08 Temperature Pulse Rate 68 69 76 Respiratory Rate Blood Pressure O2 Sat by Pulse 97 97 96 Oximetry 02/24/19 02/24/19 02/24/19 06:13 06:18 06:26 Temperature Pulse Rate 78 87 65 Respiratory Rate Blood Pressure 132/85 O2 Sat by Pulse 95 98 Oximetry 02/24/19 02/24/19 02/24/19 06:55 07:14 07:44 Temperature 98.4 F Pulse Rate 77 58 L 73 Respiratory 16 Rate Blood Pressure 139/96 137/95 128/80 O2 Sat by Pulse Oximetry 02/24/19 08:14 Temperature Pulse Rate 86 Respiratory Rate Blood Pressure 115/76 O2 Sat by Pulse Oximetry - Exam Breasts: deferred Lungs: Normal air movement Abdomen: Present: soft. Absent: tenderness Vulva: both: normal Uterus: Present: fundal height above umbilicus. Absent: tenderness FHR: category 1 Cervical Dilatation: 2 Cervical Effacement Percentage: 50 station: -2 soft, midline Uterine Contraction Pattern: Irregular Extremities: normal - Labs Labs: Abnormal Labs 02/22/19 02/22/19 02/23/19 17:40 Unknown 05:44 WBC 11.1 H 12.1 H MCV 77 L 77 L MCH 25 L 25 L RDW 15.7 H 15.7 H Potassium 3.5 L Glucose 121 H Alkaline Phosphatase 203 H Albumin 3.4 L Laboratory Results - last 24 hr 02/22/19 Unknown RPR Nonreactive
[2019-02-24] MEDS ORDERED: BRETHINE IVP PRN (09:17)
[2019-02-24] MEDS ORDERED: NARCAN 0.4 MG/1 ML IV PRN (09:17)
[2019-02-24] MEDS ORDERED: SUBLIMAZE IV PRN (09:17)
[2019-02-24] MEDS ORDERED: MINERAL OIL PO PRN (09:17)
[2019-02-24] MEDS ORDERED: ZOFRAN IV PRN ×2 (09:17→22:19)
[2019-02-24] MEDS ORDERED: BRETHINE SUB-Q PRN (09:17)
[2019-02-24] MEDS ORDERED: XYLOCAINE 2% INFILTRATI ONE (10:00)
[2019-02-24] MEDS ORDERED: PITOCin/NS 30 UNIT/500ML 30 UNITS/500 ML BAG IV SCH ×2 (10:00)
[2019-02-24] MEDS ORDERED: LACTATED RINGERS 1,000 ML IV SCH (10:00)
[2019-02-24] MEDS ORDERED: PITOCin/NS 20 UNIT/1000ML DRIP 20 UNITS/1,000 ML BAG IV SCH ×2 (10:00→22:19)
--- NOTE | 2019-02-24 10:19 | Progress Note ---
Assessment and Plan - Patient Problems (1) 38 weeks gestation of Current Visit: Yes Status: Acute Plan to address problem: Allow epidural, then attempt AROM and start pitocin (2) IUGR (intrauterine growth restriction) Current Visit: Yes Status: Acute (3) Abnormal finding on screen Current Visit: Yes Status: Acute Subjective - Subjective Date of service: 02/24/19 Principal diagnosis: IOL IUGR Interval history: Patient presented to office to [facility] for IUGR revealed a suspicious deceleration. Since [facility] recommends induction at 38 -39 weeks will proceed with induction at this EDC Confirmation: 03/07/2019 Gestational Age: 10 6/7 weeks Past History : 1 Term Births: 0 Premature Births: 0 Living Children: 0 Para: 0 Mult. Births: 0 Prev : 0 Prev. attempt? 0 Aborta: 0 Elect. Ab: 0 Spont. Ab: 0 Ectopics: 0 Past Medical History: Abnormal Pap Smear 2016 Past Surgical History: negative Past Medical History Anesthesia Complications: negative Anemia: negative Autoimmune Disorder: negative Bleeding Disorder: negative Blood Transfusions: negative Breast Disease: negative Diabetes: negative Heart Disease: negative Hypertension: negative Hepatitis/Liver Disease: negative Kidney Disease/UTI: negative Neurologic/Epilepsy/Migraines: negative Phlebitis/Varicosities: negative Psychiatric: negative Pulmonary Disease/Asthma: negative Thyroid Disease: negative Hospitalizations: negative Surgery (Non-resistor tester): negative Abnormal PAP: positive, 2016, normal 09/2017 Family Hx: maternal aunt: DM and HTN no known family hx cancer Social Hx: single no ETOH/drugs/Smoking Infection History Hx of STD: chlamydia 2010 HIV Risk Eval: no Hepatitis B Risk Eval: low risk Personal hx. of genital herpes: no Partner hx. of genital herpes: no Rash, Viral, or Febrile illness since last LMP? no Varicella/Chicken Pox Status: Previous Disease Genetic History Congenital Heart Defect: Mom: no Dad: no Riaz Disease: Mom: no Dad: no Thalassemia Mom: no Dad: no Neural Tube Defect Mom: no Dad: no Down's Syndrome Mom: no Dad: no Torsten-Sachs Mom: no Dad: no Sickle Cell Disease/Trait Mom: no Dad: no Hemophilia Mom: no Dad: no Muscular Dystrophy Mom: no Dad: no Cystic Fibrosis Mom: no Dad: no [place] Chorea Mom: no Dad: no Mental Retardation Mom: no Dad: no Fragile X Mom: no Dad: no Other Genetic/Chromosomal Disorder Mom: no Dad: no Child w/other defect Mom: no Dad: no Enviromental Exposures Xray Exposure: no Medication, drug, or alcohol use since LMP: no Chemical/Other Exposure: no Exposure to Cat Liter: no Hx of Parvovirus (Fifth Disease): no Occupational Exposure to Children: none Current Allergies (reviewed today): No known allergies Patient reports: movement normal, contractions (occasional, mild), no new complaints, no loss of fluid, no vaginal bleeding Objective - Vital Signs Vital Signs: Vital Signs - 12hr 02/23/19 02/23/19 02/23/19 22:21 22:24 22:26 Temperature Pulse Rate 84 67 72 Respiratory Rate Blood Pressure 120/77 O2 Sat by Pulse 98 97 Oximetry 02/23/19 02/23/19 02/23/19 22:31 22:36 22:41 Temperature Pulse Rate 73 79 73 Respiratory Rate Blood Pressure O2 Sat by Pulse 95 95 95 Oximetry 02/23/19 02/23/19 02/23/19 22:46 22:51 22:54 Temperature Pulse Rate 74 75 62 Respiratory Rate Blood Pressure 122/78 O2 Sat by Pulse 96 97 Oximetry 02/23/19 02/23/19 02/23/19 22:56 23:01 23:06 Temperature Pulse Rate 68 66 70 Respiratory Rate Blood Pressure O2 Sat by Pulse 96 97 96 Oximetry 02/23/19 02/23/19 02/24/19 23:24 23:54 00:00 Temperature 98.1 F Pulse Rate 73 79 Respiratory 18 Rate Blood Pressure 123/78 137/79 O2 Sat by Pulse Oximetry 02/24/19 02/24/19 02/24/19 00:24 00:54 01:24 Temperature Pulse Rate 70 63 68 Respiratory Rate Blood Pressure 127/60 118/65 127/83 O2 Sat by Pulse Oximetry 02/24/19 02/24/19 02/24/19 01:35 01:40 01:45 Temperature Pulse Rate 72 70 67 Respiratory Rate Blood Pressure O2 Sat by Pulse 47 L 100 100 Oximetry 02/24/19 02/24/19 02/24/19 01:50 01:54 01:55 Temperature Pulse Rate 75 74 77 Respiratory Rate Blood Pressure 123/85 O2 Sat by Pulse 99 100 Oximetry 02/24/19 02/24/19 02/24/19 02:00 02:05 02:13 Temperature Pulse Rate 71 74 Respiratory Rate Blood Pressure O2 Sat by Pulse 98 99 97 Oximetry 02/24/19 02/24/19 02/24/19 02:18 02:23 02:28 Temperature Pulse Rate 81 67 81 Respiratory Rate Blood Pressure O2 Sat by Pulse 99 98 99 Oximetry 02/24/19 02/24/19 02/24/19 02:33 02:38 02:43 Temperature Pulse Rate 66 69 79 Respiratory Rate Blood Pressure O2 Sat by Pulse 99 99 99 Oximetry 02/24/19 02/24/19 02/24/19 02:48 02:53 02:58 Temperature Pulse Rate 69 69 79 Respiratory Rate Blood Pressure O2 Sat by Pulse 97 98 98 Oximetry 02/24/19 02/24/19 02/24/19 03:03 03:08 03:13 Temperature Pulse Rate 87 87 87 Respiratory Rate Blood Pressure O2 Sat by Pulse 95 95 95 Oximetry 02/24/19 02/24/19 02/24/19 03:18 03:23 03:28 Temperature Pulse Rate 91 H 92 H 95 H Respiratory Rate Blood Pressure O2 Sat by Pulse 96 94 96 Oximetry 02/24/19 02/24/19 02/24/19 03:33 03:38 03:43 Temperature Pulse Rate 87 97 H 92 H Respiratory Rate Blood Pressure O2 Sat by Pulse 95 98 95 Oximetry 02/24/19 02/24/19 02/24/19 03:48 03:53 03:55 Temperature Pulse Rate 78 86 93 H Respiratory Rate Blood Pressure 126/72 O2 Sat by Pulse 95 95 Oximetry 02/24/19 02/24/19 02/24/19 03:58 04:03 04:13 Temperature Pulse Rate 78 88 72 Respiratory Rate Blood Pressure O2 Sat by Pulse 95 97 100 Oximetry 02/24/19 02/24/19 02/24/19 04:18 04:23 04:24 Temperature Pulse Rate 67 68 63 Respiratory Rate Blood Pressure 126/84 O2 Sat by Pulse 99 98 Oximetry 02/24/19 02/24/19 02/24/19 04:28 04:33 04:38 Temperature Pulse Rate 65 66 66 Respiratory Rate Blood Pressure O2 Sat by Pulse 99 97 96 Oximetry 02/24/19 02/24/19 02/24/19 04:43 04:48 04:53 Temperature 98.0 F Pulse Rate 69 70 69 Respiratory 16 Rate Blood Pressure O2 Sat by Pulse 97 97 97 Oximetry 02/24/19 02/24/19 02/24/19 04:54 04:58 05:03 Temperature Pulse Rate 66 74 67 Respiratory Rate Blood Pressure 112/76 O2 Sat by Pulse 96 97 Oximetry 02/24/19 02/24/19 02/24/19 05:08 05:13 05:18 Temperature Pulse Rate 74 72 71 Respiratory Rate Blood Pressure O2 Sat by Pulse 96 95 94 Oximetry 02/24/19 02/24/19 02/24/19 05:23 05:24 05:28 Temperature Pulse Rate 76 63 71 Respiratory Rate Blood Pressure 119/78 O2 Sat by Pulse 97 93 Oximetry 02/24/19 02/24/19 02/24/19 05:32 05:33 05:38 Temperature Pulse Rate 90 73 88 Respiratory Rate Blood Pressure O2 Sat by Pulse 88 98 95 Oximetry 02/24/19 02/24/19 02/24/19 05:41 05:43 05:48 Temperature Pulse Rate 81 82 74 Respiratory Rate Blood Pressure O2 Sat by Pulse 87 98 99 Oximetry 02/24/19 02/24/19 02/24/19 05:53 05:54 05:58 Temperature Pulse Rate 76 70 68 Respiratory Rate Blood Pressure 121/74 O2 Sat by Pulse 99 97 Oximetry 02/24/19 02/24/19 02/24/19 06:03 06:08 06:13 Temperature Pulse Rate 69 76 78 Respiratory Rate Blood Pressure O2 Sat by Pulse 97 96 95 Oximetry 02/24/19 02/24/19 02/24/19 06:18 06:26 06:55 Temperature Pulse Rate 87 65 77 Respiratory Rate Blood Pressure 132/85 139/96 O2 Sat by Pulse 98 Oximetry 02/24/19 02/24/19 02/24/19 07:14 07:44 08:14 Temperature 98.4 F Pulse Rate 58 L 73 86 Respiratory 16 Rate Blood Pressure 137/95 128/80 115/76 O2 Sat by Pulse Oximetry 02/24/19 08:44 Temperature Pulse Rate 70 Respiratory Rate Blood Pressure 133/89 O2 Sat by Pulse Oximetry - Exam Lungs: Normal air movement Abdomen: Present: soft. Absent: tenderness Vulva: both: normal Uterus: Present: fundal height above umbilicus. Absent: tenderness FHR: category 1 (variable deceleration noted) Cervical Dilatation: 2.5 Cervical Effacement Percentage: 50 station: -2, unable to tolerate attempt at AROM Uterine Contraction Pattern: Irregular Extremities: normal - Labs Labs: Abnormal Labs 02/22/19 02/22/19 02/23/19 17:40 Unknown 05:44 WBC 11.1 H 12.1 H MCV 77 L 77 L MCH 25 L 25 L RDW 15.7 H 15.7 H Potassium 3.5 L Glucose 121 H Alkaline Phosphatase 203 H Albumin 3.4 L Laboratory Results - last 24 hr 02/22/19 Unknown RPR Nonreactive
[2019-02-24] MEDS ORDERED: MARCAINE 0.25% INFILTRATI ONE (10:40)
[2019-02-24] MEDS ORDERED: NARCAN 2 MG/2 ML IV PRN (10:59)
--- NOTE | 2019-02-24 10:59 | Anesthesia Consultation ---
Anesthesia Consult and Med Hx Date of service: 02/24/19 - Airway Anesthetic Teeth Evaluation: Good Mallampati Class: Class II Intubation Access Assessment: Good - Pulmonary Exam CTA: Yes - Cardiac Exam Cardiac Exam: RRR - Pre-Operative Health Status ASA Pre-Surgery Classification: ASA2 Proposed Anesthetic Plan: Epidural - Pulmonary Hx Asthma: Yes (childhood) COPD: No Hx Pneumonia: No - Cardiovascular System Hx Hypertension: No - Central Nervous System Hx Seizures: No Hx Psychiatric Problems: No - Endocrine Hx Renal Disease: No Hx Hypothyroidism: No Hx Hyperthyroidism: No - Hematic Hx Anemia: No Hx Sickle Cell Disease: No - Other Systems Hx Alcohol Use: No
[2019-02-24] MEDS: PITOCin/NS 30 UNIT/500ML 30 UNITS/500 ML BAG IV SCH (11:20)
[2019-02-24] MEDS: fentaNYL-BUPIV 2 MCG/ML-0.125% 200 MCG/100 ML BAG EPIDURAL SCH ×2 (11:36→19:00)
--- NOTE | 2019-02-24 17:09 | Progress Note ---
Assessment and Plan - Patient Problems (1) 38 weeks gestation of Current Visit: Yes Status: Acute Plan to address problem: Anticipate vaginal delivery (2) IUGR (intrauterine growth restriction) Current Visit: Yes Status: Acute (3) Abnormal finding on screen Current Visit: Yes Status: Acute Subjective - Subjective Date of service: 02/24/19 Principal diagnosis: IOL IUGR Patient reports: movement normal, contractions (occasional, mild), no new complaints, no loss of fluid, no vaginal bleeding Objective - Vital Signs Vital Signs: Vital Signs - 12hr 02/24/19 02/24/19 02/24/19 05:08 05:13 05:18 Temperature Pulse Rate 74 72 71 Respiratory Rate Blood Pressure O2 Sat by Pulse 96 95 94 Oximetry 02/24/19 02/24/19 02/24/19 05:23 05:24 05:28 Temperature Pulse Rate 76 63 71 Respiratory Rate Blood Pressure 119/78 O2 Sat by Pulse 97 93 Oximetry 02/24/19 02/24/19 02/24/19 05:32 05:33 05:38 Temperature Pulse Rate 90 73 88 Respiratory Rate Blood Pressure O2 Sat by Pulse 88 98 95 Oximetry 02/24/19 02/24/19 02/24/19 05:41 05:43 05:48 Temperature Pulse Rate 81 82 74 Respiratory Rate Blood Pressure O2 Sat by Pulse 87 98 99 Oximetry 02/24/19 02/24/19 02/24/19 05:53 05:54 05:58 Temperature Pulse Rate 76 70 68 Respiratory Rate Blood Pressure 121/74 O2 Sat by Pulse 99 97 Oximetry 02/24/19 02/24/19 02/24/19 06:03 06:08 06:13 Temperature Pulse Rate 69 76 78 Respiratory Rate Blood Pressure O2 Sat by Pulse 97 96 95 Oximetry 02/24/19 02/24/19 02/24/19 06:18 06:26 06:55 Temperature Pulse Rate 87 65 77 Respiratory Rate Blood Pressure 132/85 139/96 O2 Sat by Pulse 98 Oximetry 02/24/19 02/24/19 02/24/19 07:14 07:44 08:14 Temperature 98.4 F Pulse Rate 58 L 73 86 Respiratory 16 Rate Blood Pressure 137/95 128/80 115/76 O2 Sat by Pulse Oximetry 02/24/19 02/24/19 02/24/19 08:44 10:16 10:21 Temperature Pulse Rate 70 71 74 Respiratory Rate Blood Pressure 133/89 O2 Sat by Pulse 98 98 Oximetry 02/24/19 02/24/19 02/24/19 10:26 10:31 10:36 Temperature Pulse Rate 77 76 74 Respiratory Rate Blood Pressure O2 Sat by Pulse 98 99 99 Oximetry 02/24/19 02/24/19 02/24/19 10:41 10:46 10:49 Temperature Pulse Rate 85 76 72 Respiratory Rate Blood Pressure 152/93 O2 Sat by Pulse 99 98 Oximetry 02/24/19 02/24/19 02/24/19 10:51 10:55 10:56 Temperature Pulse Rate 81 73 72 Respiratory Rate Blood Pressure 135/86 O2 Sat by Pulse 99 98 Oximetry 02/24/19 02/24/19 02/24/19 10:57 10:59 11:01 Temperature Pulse Rate 75 82 82 Respiratory Rate Blood Pressure 127/86 132/91 130/89 O2 Sat by Pulse 97 Oximetry 02/24/19 02/24/19 02/24/19 11:03 11:05 11:06 Temperature Pulse Rate 83 76 93 H Respiratory Rate Blood Pressure 134/89 125/81 O2 Sat by Pulse 97 Oximetry 02/24/19 02/24/19 02/24/19 11:11 11:16 11:21 Temperature Pulse Rate 76 88 79 Respiratory Rate Blood Pressure O2 Sat by Pulse 96 97 94 Oximetry 02/24/19 02/24/19 02/24/19 11:26 11:31 11:35 Temperature Pulse Rate 85 84 75 Respiratory Rate Blood Pressure 122/87 O2 Sat by Pulse 97 94 Oximetry 02/24/19 02/24/19 02/24/19 11:36 11:41 11:46 Temperature Pulse Rate 89 78 75 Respiratory Rate Blood Pressure O2 Sat by Pulse 97 97 97 Oximetry 02/24/19 02/24/19 02/24/19 11:51 11:56 12:01 Temperature Pulse Rate 77 75 71 Respiratory Rate Blood Pressure O2 Sat by Pulse 96 98 97 Oximetry 02/24/19 02/24/19 02/24/19 12:06 12:11 12:16 Temperature Pulse Rate 71 83 93 H Respiratory Rate Blood Pressure 130/86 O2 Sat by Pulse 97 97 97 Oximetry 02/24/19 02/24/19 02/24/19 12:21 12:26 12:31 Temperature Pulse Rate 72 69 68 Respiratory Rate Blood Pressure O2 Sat by Pulse 98 97 97 Oximetry 02/24/19 02/24/19 02/24/19 12:36 12:41 12:46 Temperature Pulse Rate 70 76 69 Respiratory Rate Blood Pressure 128/84 O2 Sat by Pulse 96 98 97 Oximetry 02/24/19 02/24/19 02/24/19 12:51 12:56 13:01 Temperature Pulse Rate 69 74 70 Respiratory Rate Blood Pressure O2 Sat by Pulse 97 93 98 Oximetry 02/24/19 02/24/19 02/24/19 13:06 13:11 13:16 Temperature Pulse Rate 70 72 70 Respiratory Rate Blood Pressure O2 Sat by Pulse 96 95 97 Oximetry 02/24/19 02/24/19 02/24/19 13:21 13:26 13:31 Temperature Pulse Rate 81 69 79 Respiratory Rate Blood Pressure O2 Sat by Pulse 99 98 99 Oximetry 02/24/19 02/24/19 02/24/19 13:36 13:39 13:41 Temperature Pulse Rate 73 65 66 Respiratory Rate Blood Pressure 126/84 O2 Sat by Pulse 98 99 Oximetry 02/24/19 02/24/19 02/24/19 13:46 13:51 13:56 Temperature Pulse Rate 73 69 74 Respiratory Rate Blood Pressure O2 Sat by Pulse 99 98 98 Oximetry 02/24/19 02/24/19 02/24/19 14:01 14:06 14:11 Temperature Pulse Rate 67 70 69 Respiratory Rate Blood Pressure O2 Sat by Pulse 98 98 96 Oximetry 02/24/19 02/24/19 02/24/19 14:16 14:21 14:26 Temperature Pulse Rate 70 69 69 Respiratory Rate Blood Pressure O2 Sat by Pulse 99 98 100 Oximetry 02/24/19 02/24/19 02/24/19 14:31 14:36 14:40 Temperature Pulse Rate 66 78 65 Respiratory Rate Blood Pressure 123/82 O2 Sat by Pulse 97 97 Oximetry 02/24/19 02/24/19 02/24/19 14:41 14:46 14:51 Temperature Pulse Rate 67 67 66 Respiratory Rate Blood Pressure O2 Sat by Pulse 98 98 98 Oximetry 02/24/19 02/24/19 02/24/19 14:56 15:01 15:06 Temperature Pulse Rate 66 64 67 Respiratory Rate Blood Pressure O2 Sat by Pulse 98 99 98 Oximetry 0602/24/19 02/24/19 15:11 15:16 15:21 Temperature Pulse Rate 62 68 65 Respiratory Rate Blood Pressure O2 Sat by Pulse 98 98 98 Oximetry 02/24/19 02/24/19 02/24/19 15:26 15:31 15:36 Temperature Pulse Rate 79 67 71 Respiratory Rate Blood Pressure O2 Sat by Pulse 98 97 98 Oximetry 02/24/19 02/24/19 02/24/19 15:40 15:41 15:46 Temperature Pulse Rate 66 64 66 Respiratory Rate Blood Pressure 143/91 O2 Sat by Pulse 98 99 Oximetry 02/24/19 02/24/19 02/24/19 15:51 15:56 16:01 Temperature Pulse Rate 65 69 68 Respiratory Rate Blood Pressure O2 Sat by Pulse 98 97 98 Oximetry 02/24/19 02/24/19 02/24/19 16:06 16:11 16:16 Temperature Pulse Rate 69 69 69 Respiratory Rate Blood Pressure O2 Sat by Pulse 99 99 98 Oximetry 02/24/19 02/24/19 02/24/19 16:21 16:26 16:31 Temperature Pulse Rate 68 78 71 Respiratory Rate Blood Pressure O2 Sat by Pulse 97 99 100 Oximetry 02/24/19 02/24/19 02/24/19 16:36 16:37 16:41 Temperature Pulse Rate 74 78 72 Respiratory Rate Blood Pressure O2 Sat by Pulse 99 85 100 Oximetry 02/24/19 02/24/19 02/24/19 16:46 16:51 16:56 Temperature Pulse Rate 72 74 69 Respiratory Rate Blood Pressure O2 Sat by Pulse 100 99 100 Oximetry 02/24/19 17:01 Temperature Pulse Rate 72 Respiratory Rate Blood Pressure O2 Sat by Pulse 99 Oximetry - Exam Breasts: deferred Lungs: Normal air movement Abdomen: Absent: tenderness Vulva: both: normal Uterus: Present: fundal height above umbilicus FHR: category 1 Uterine Contraction Monitor Mode: Internal Cervical Dilatation: 4.5 Cervical Effacement Percentage: 80 station: 0, IUPC and ISE placed w/o difficulty after patient gave verbal consent Uterine Contraction Frequency (min): 2-3 Uterine Contraction Pattern: Regular - Labs Labs: Abnormal Labs 02/22/19 02/22/19 02/23/19 17:40 Unknown 05:44 WBC 11.1 H 12.1 H MCV 77 L 77 L MCH 25 L 25 L RDW 15.7 H 15.7 H Potassium 3.5 L Glucose 121 H Alkaline Phosphatase 203 H Albumin 3.4 L
--- NOTE | 2019-02-24 21:39 | Procedure Note ---
OB Delivery Note - Delivery Date of Delivery: 02/24/19 Surgeon: EDUARDO PETER Estimated blood loss: 200cc - Vaginal Delivery presentation: vertex Delivery position: OA Intrapartum events: other(please specify) (FGR) Delivery induction: oxytocin Delivery augmentation: rupture of membranes, pitocin Delivery monitor: external FHT, external uterine, internal FHT, internal uterine Route of delivery: Delivery placenta: spontaneous (intact) Episiotomy: none Delivery laceration: 2nd degree Delivery repair: vicryl (2-0 vicryl usual fashion) Anesthesia: epidural - A at 1 minute: 8 at 5 minutes: 9 Infant Gender: Female (5lb 7oz)
[2019-02-24] MEDS ORDERED: MILK OF MAGNESIA PO PRN (22:19)
[2019-02-24] MEDS ORDERED: TYLENOL PO PRN (22:19)
[2019-02-24] MEDS ORDERED: SODIUM CHLORIDE FLUSH SYRINGE 10 ML IV PRN (22:19)
[2019-02-24] MEDS ORDERED: PHENERGAN PO PRN (22:19)
[2019-02-24] MEDS ORDERED: CYTOTEC PR PRN (22:19)
[2019-02-24] MEDS ORDERED: METHERGINE IM PRN (22:19)
[2019-02-24] MEDS ORDERED: LANSINOH TP PRN (22:19)
[2019-02-24] MEDS ORDERED: PHENERGAN PR PRN (22:19)
[2019-02-24] MEDS ORDERED: TUCKS PAD TP PRN (22:19)
[2019-02-24] MEDS ORDERED: DULCOLAX PR PRN (22:19)
[2019-02-24] MEDS ORDERED: BENADRYL PO PRN (22:19)
[2019-02-24] MEDS ORDERED: HEMABATE IM PRN (22:19)
[2019-02-24] MEDS: IBUPROFEN PO SCH (23:19)
[2019-02-25] MEDS: IBUPROFEN PO SCH ×2 (05:19→23:42)
[2019-02-25] MEDS ORDERED: BOOSTRIX IM ONE ×2 (06:00)
--- NOTE | 2019-02-25 08:05 | Post Anesthesia Evaluation ---
- Post Anesthesia Evaluation Patient Participated: Yes Airway Patent: Yes Stable Respiratory Function: Yes Nausea/Vomiting: No Temp > 96.8F: Yes Pain Manageable: Yes Adequeate Hydration: Yes Anesthesia Complications: No Block Receding Appropriately: Yes Patient on Ventilator: No
[2019-02-25 09:51] LABS: Hematocrit 29.7 % (30.3-42.9); Hemoglobin 9.9 gm/dl (10.1-14.3)
[2019-02-25] MEDS ORDERED: M-M-R II VACCINE SUB-Q ONE (10:22)
--- NOTE | 2019-02-25 13:56 | Progress Note ---
Assessment and Plan Continue PPD pathway - Patient Problems (1) Normal vaginal delivery Current Visit: Yes Status: Acute (2) Single live Current Visit: Yes Status: Acute Subjective - Subjective Date of service: 02/25/19 Principal diagnosis: PPD#1 Interval history: Patient presented to office to MARGARITO CARNEY for IUGR revealed a suspicious deceleration. Since [employer] recommends induction at 38 -39 weeks will proceed with induction at this EDC Confirmation: 03/07/2019 Gestational Age: 10 6/7 weeks Past History : 1 Term Births: 0 Premature Births: 0 Living Children: 0 Para: 0 Mult. Births: 0 Prev : 0 Prev. attempt? 0 Aborta: 0 Elect. Ab: 0 Spont. Ab: 0 Ectopics: 0 Past Medical History: Abnormal Pap Smear 2016 Past Surgical History: negative Past Medical History Anesthesia Complications: negative Anemia: negative Autoimmune Disorder: negative Bleeding Disorder: negative Blood Transfusions: negative Breast Disease: negative Diabetes: negative Heart Disease: negative Hypertension: negative Hepatitis/Liver Disease: negative Kidney Disease/UTI: negative Neurologic/Epilepsy/Migraines: negative Phlebitis/Varicosities: negative Psychiatric: negative Pulmonary Disease/Asthma: negative Thyroid Disease: negative Hospitalizations: negative Surgery (Non-general administrator): negative Abnormal PAP: positive, 2016, normal 09/2017 Family Hx: maternal aunt: DM and HTN no known family hx cancer Social Hx: single no ETOH/drugs/Smoking Infection History Hx of STD: chlamydia 2011 HIV Risk Eval: no Hepatitis B Risk Eval: low risk Personal hx. of genital herpes: no Partner hx. of genital herpes: no Rash, Viral, or Febrile illness since last LMP? no Varicella/Chicken Pox Status: Previous Disease Genetic History Congenital Heart Defect: Mom: no Dad: no Riaz Disease: Mom: no Dad: no Thalassemia Mom: no Dad: no Neural Tube Defect Mom: no Dad: no Down's Syndrome Mom: no Dad: no Torsten-Sachs Mom: no Dad: no Sickle Cell Disease/Trait Mom: no Dad: no Hemophilia Mom: no Dad: no Muscular Dystrophy Mom: no Dad: no Cystic Fibrosis Mom: no Dad: no [place] Chorea Mom: no Dad: no Mental Retardation Mom: no Dad: no Fragile X Mom: no Dad: no Other Genetic/Chromosomal Disorder Mom: no Dad: no Child w/other defect Mom: no Dad: no Enviromental Exposures Xray Exposure: no Medication, drug, or alcohol use since LMP: no Chemical/Other Exposure: no Exposure to Cat Liter: no Hx of Parvovirus (Fifth Disease): no Occupational Exposure to Children: none Current Allergies (reviewed today): No known allergies Patient reports: appetite normal, voiding normally, pain well controlled, ambulating normally Objective - Vital Signs Latest vital signs: Vital Signs Temp Pulse Resp BP BP Pulse Ox 02/25/19 12:13 98.5 F 75 18 113/77 02/25/19 07:43 98.3 F 70 18 111/78 02/25/19 04:00 98.8 F 66 18 104/74 02/25/19 00:00 98.4 F 77 18 111/78 02/24/19 23:19 20 02/24/19 22:00 98.7 F 68 16 132/81 02/24/19 21:15 72 143/87 02/24/19 21:00 78 150/93 02/24/19 20:45 87 132/87 02/24/19 20:30 95 H 129/101 02/24/19 20:01 86 100 02/24/19 19:56 86 100 02/24/19 19:55 85 85 02/24/19 19:51 78 100 02/24/19 19:46 78 100 02/24/19 19:41 86 100 02/24/19 19:40 99.3 F 20 02/24/19 19:39 78 132/83 02/24/19 19:36 77 100 02/24/19 19:31 73 100 02/24/19 19:26 82 100 02/24/19 19:21 72 100 02/24/19 19:16 72 100 02/24/19 19:11 72 100 02/24/19 19:06 75 100 02/24/19 19:01 86 99 02/24/19 18:56 96 H 98 02/24/19 18:51 72 99 02/24/19 18:46 83 100 02/24/19 18:41 83 100 02/24/19 18:36 80 99 02/24/19 18:31 97 H 100 02/24/19 18:26 68 100 02/24/19 18:21 68 100 02/24/19 18:16 64 100 02/24/19 18:11 69 100 02/24/19 18:06 70 100 02/24/19 18:01 66 100 02/24/19 17:56 65 100 02/24/19 17:51 71 100 02/24/19 17:46 73 100 02/24/19 17:41 71 100 02/24/19 17:36 71 100 02/24/19 17:31 76 100 02/24/19 17:26 70 100 02/24/19 17:21 78 100 02/24/19 17:16 68 99 02/24/19 17:11 78 99 02/24/19 17:06 74 100 02/24/19 17:01 72 99 02/24/19 16:56 69 100 02/24/19 16:51 74 99 02/24/19 16:46 72 100 02/24/19 16:41 72 100 02/24/19 16:37 78 85 02/24/19 16:36 74 99 02/24/19 16:31 71 100 02/24/19 16:26 78 99 02/24/19 16:21 68 97 02/24/19 16:16 69 98 02/24/19 16:11 69 99 02/24/19 16:06 69 99 02/24/19 16:01 68 98 02/24/19 15:56 69 97 02/24/19 15:51 65 98 02/24/19 15:46 66 99 02/24/19 15:41 64 98 02/24/19 15:40 66 143/91 02/24/19 15:36 71 98 02/24/19 15:31 67 97 02/24/19 15:26 79 98 02/24/19 15:21 65 98 02/24/19 15:16 68 98 02/24/19 15:11 62 98 02/24/19 15:06 67 98 02/24/19 15:01 64 99 02/24/19 15:00 97.6 F 16 02/24/19 14:56 66 98 02/24/19 14:51 66 98 02/24/19 14:46 67 98 02/24/19 14:41 67 98 02/24/19 14:40 65 123/82 02/24/19 14:36 78 97 02/24/19 14:31 66 97 02/24/19 14:26 69 100 02/24/19 14:21 69 98 02/24/19 14:16 70 99 02/24/19 14:11 69 96 02/24/19 14:06 70 98 02/24/19 14:01 67 98 02/24/19 13:56 74 98 Intake and Output 02/24/19 02/25/19 02/25/19 22:59 06:59 14:59 Intake Total 314.667 300 840 Output Total 1350 800 Balance -1035.333 -500 840 Intake: IV 14.667 PITOCin/NS 30 UNIT/500ML 14.667 30 units In 500 ml @ 4 mls/hr IV TITR SARAH Rx#: [id number] Oral 840 Intake, Free Water 300 300 Output: Urine 1350 800 Indwelling Catheter 1350 400 Void 400 Other: Total, Intake Amount 360 Total, Output Amount 1350 400 Estimated Blood Loss 250 - Exam Breasts: Present: other (baby on chest) Lungs: Present: Normal air movement Abdomen: Present: normal appearance, soft Uterus: Present: firm, fundal height below umbilicus Extremities: Present: normal. Absent: tenderness, edema - Labs Labs: Abnormal lab results 02/25/19 Range/Units 09:35 Hgb 9.9 L (10.1-14.3) gm/dl Hct 29.7 L (30.3-42.9) %
--- NOTE | 2019-02-26 06:16 | Progress Note ---
Assessment and Plan Pt resting w/o any c/o. Noted BP elevated 130/90s Pt denies VILLAFUERTE, blurred vision, chest pain. Will repeat [facility] labs with urine. Will continue to monitor BP and f/u on lab results. Possible d/c if stable. Will consult with results - Patient Problems (1) Elevated blood pressure reading Onset Date: ~02/26/19 Current Visit: Yes Status: Acute Plan to address problem: see above note Subjective - Subjective Date of service: 02/26/19 (pt denies VILLAFUERTE, blurred vision, chest pain) Principal diagnosis: PPD#2 ; elevated BP Patient reports: appetite normal, voiding normally, pain well controlled : doing well Objective - Vital Signs Latest vital signs: Vital Signs Temp Pulse Resp BP BP 02/25/19 23:27 98.4 F 20 142/91 02/25/19 16:30 98.5 F 80 18 146/92 02/25/19 12:13 98.5 F 75 18 113/77 02/25/19 07:43 98.3 F 70 18 111/78 Intake and Output 02/25/19 02/25/19 02/26/19 14:59 22:59 06:59 Intake Total 840 480 Balance 840 480 Intake: Oral 840 480 Other: Total, Intake Amount 360 480 - Exam Breasts: Present: normal Cardiovascular: Present: Regular rate Lungs: Present: Normal air movement Abdomen: Present: normal appearance, soft Uterus: Present: normal, fundal height below umbilicus Extremities: Present: normal Deep Tendon Reflex Grade: Normal +2 Incision: Present: normal, dry, intact - Labs Labs: Abnormal lab results 02/25/19 Range/Units 09:35 Hgb 9.9 L (10.1-14.3) gm/dl Hct 29.7 L (30.3-42.9) %
[2019-02-26] MEDS: IBUPROFEN PO SCH ×2 (06:17→13:02)
[2019-02-26 08:14] LABS: Alanine Aminotransferase 12 units/L (7-56); Uric Acid 5.1 mg/dL (3.5-7.6)
[2019-02-26 10:29] LABS: Bilirubin,Urine NEG (Negative); Blood,Urine LG (Negative); Color,Urine Yellow (Yellow); Mucus,Urine FEW /HPF; Protein,Urine <15 mg/dL mg/dL (Negative); Urobilinogen,Urine < 2.0 mg/dL (<2.0)
[2019-02-26] MEDS ORDERED: NORMODYNE PO SCH (13:00)
--- NOTE | 2019-02-26 13:15 | Discharge Summary ---
Providers - Providers Date of Admission: 02/22/19 12:52 Date of discharge: 02/26/19 (started on labetalol 200mg po BID) Attending physician: EDUARDO PETER 02/24/19 22:19 Consult to [facility] [CONS] Routine Reason For Exam: assistance with , SNS Primary care physician: EDUARDO PETER Hospitalization Reason for admission: active labor Delivery: Episiotomy: none Laceration: none Incision: normal Other procedures: none complications: none Discharge diagnosis: IUP at term delivered baby: female Hospital course: uncomplicated vaginal delivery elevated BP with normal [facility] labs Condition at discharge: Good Disposition: DC-01 TO HOME OR SELFCARE - Discharge Diagnoses (1) Elevated blood pressure reading Status: Acute Comment: f/u one week for BP check; RX Labetalol provided @ d/c Plan - Discharge Medications Prescriptions: Labetalol [Labetalol 200mg TAB] 200 mg PO BID #60 tablet - Provider Discharge Summary Activity: routine, no sex for 6 weeks, no heavy lifting 4 weeks, no strenuous exercise Diet: routine Instructions: routine Additional instructions: [] Smoking cessation referral if applicable(refer to patient education folder for contact #) [] Refer to [facility]'s [facility] Booklet Call your doctor immediately for: * Fever > 100.5 * Heavy vaginal bleeding ( >1 pad per hour) * Severe persistent headache * Shortness of breath * Reddened, hot, painful area to leg or breast * Drainage or odor from incision. * Keep incision clean and dry at all times and follow doctor's instructions regarding bathing/showering - Follow up plan Follow up: EDUARDO PETER MD [Primary Care Provider] - 03/05/19 1:30 pm (Congratulations! Please keep blood pressure check appointment as scheduled for Tuesday03-05-19 at 1:30pm. Take medication as prescribed. Call with headache, blurred vision, chest pain. Motrin/ibuprofen for cramping/pain. Call with concerns. TEJINDER, [address], [address], [place] [address])
[2019-02-26 18:02] VITALS: BP 125/89
== END 2019-02-26 20:34 | disposition home or self-care (01) | DRG 775 ==
LOC: LD 12:52 → OB 02-24 22:18
PROVIDERS: ADMIT Obstetrics & Gynecology; ATTEND Obstetrics & Gynecology
PROC: 10E0XZZ Delivery of Products of Conception, External Approach (ICD-10-PCS; principal; 2019-02-24)
PROC: 0KQM0ZZ Repair Perineum Muscle, Open Approach (ICD-10-PCS; 2019-02-24)
PROC: 3E0R3BZ Introduction of Anesthetic Agent into Spinal Canal, Percutaneous Approach (ICD-10-PCS; 2019-02-24)
PROC: 00HU33Z Insertion of Infusion Device into Spinal Canal, Percutaneous Approach (ICD-10-PCS; 2019-02-24)
PROC: 3E033VJ Introduction of Other Hormone into Peripheral Vein, Percutaneous Approach (ICD-10-PCS; 2019-02-24)
PROC: 10907ZC Drainage of Amniotic Fluid, Therapeutic from Products of Conception, Via Natural or Artificial Opening (ICD-10-PCS; 2019-02-24)
PROC: 3E0234Z Introduction of Serum, Toxoid and Vaccine into Muscle, Percutaneous Approach (ICD-10-PCS; 2019-02-25)
DX: O36.5930 Maternal care for other known or suspected poor fetal growth, third trimester, not applicable or unspecified (principal); O76 Abnormality in fetal heart rate and rhythm complicating labor and delivery; O99.52 Diseases of the respiratory system complicating childbirth; J45.909 Unspecified asthma, uncomplicated; O70.1 Second degree perineal laceration during delivery; Z83.3 Family history of diabetes mellitus; Z3A.38 38 weeks gestation of pregnancy; Z37.0 Single live birth; Z82.49 Family history of ischemic heart disease and other diseases of the circulatory system; Z23 Encounter for immunization
CPT/HCPCS: 36415; 80053; 81001; 82565; 83615; 84450; 84460; 84550; 85014; 85018; 85027; 86592; 86850; 86900; 86901; 87086; 90471; 90715; G0378; J2405; J2590; J3010; J7120